=== PATIENT | female | born 1995 | race Caucasian/White ===

== ENCOUNTER 2020-03-16 11:24 | Outpatient (REF) | payer SELFPAY ==
[2020-03-20 17:08] LABS: Patient Race White; SARS-CoV-2 RNA Undetected (Undetected); SARS-CoV-2 Specimen Source Nasal
== END 2020-03-16 11:44 ==
LOC: NCHCN 11:24
PROVIDERS: PCP Family Medicine; Visit Provider Nurse Practitioner Family
DX: Z20.828 Contact with and (suspected) exposure to other viral communicable diseases (principal)
CPT/HCPCS: U0003

== ENCOUNTER 2021-12-13 17:37 | Outpatient (REF) | payer MEDICAID, SELFPAY ==
--- NOTE | 2021-12-13 16:00 | PAPFT_PTH ---
PATIENT: Beatris Branham LOC: [facility] U#:[id number] AGE/SX: 26/F ROOM: RE12/13/[address]: Shabana Mccain : 1995 BED: DIS: 12/13/2021 SPEC #: [id number] RECD: 12/14/21 13:12 STATUS: ARGELIA REDaniella #: [id number] LONI: 12/13/21 16:[address]: Shabana Mccain [facility]PT[facility] Cytology RECD BY: Jaye Bryan Tissues: 1 - CX/ENDOCX FOR PAP SMEARS Procedures: PAP THIN PREP/[facility] Screening Comments: [id number]
== END 2021-12-13 17:38 | disposition home or self-care (01) ==
LOC: NCHCN 17:37
PROVIDERS: PCP Family Medicine; Visit Provider Family Medicine
DX: Z12.4 Encounter for screening for malignant neoplasm of cervix (principal); N76.0 Acute vaginitis
CPT/HCPCS: 88142

== ENCOUNTER 2023-12-26 17:25 | Outpatient (REF) | payer MEDICAID, SELFPAY ==
--- NOTE | 2023-12-26 08:00 | PAPFT_PTH ---
PATIENT: Beatris Branham LOC: [facility]#:[id number] AGE/SX: 28/F ROOM: RE12/26/[address]: Sarah Mccarthy : 1995 BED: DIS: 12/26/2023 SPEC #: [id number] RECD: 12/27/23 13:23 STATUS: ARGELIA REDaniella #: [id number] LONI: 12/26/23 08:[address]: Sarah Longoria DEPT: [facility] Cytology RECD BY: Jaye Bryan ENTERED: 12/27/23 13:24 SP TYPE: PAPFT OTHR DR: Shabana Mccain Tissues: 1 - CX/ENDOCX FOR PAP SMEARS Procedures: PAP THIN PREP/[facility] Screening Comments: [id number]
[2023-12-30 12:57] LABS: Chlamydia Result Negative (Negative); GC Result Negative (Negative)
== END 2023-12-26 17:26 | disposition home or self-care (01) ==
LOC: NCHCN 17:25
PROVIDERS: PCP Family Medicine; Visit Provider Nurse Practitioner Family
DX: Z12.4 Encounter for screening for malignant neoplasm of cervix (principal)
CPT/HCPCS: 87491; 87591; 88142